=== PATIENT | male | born 1965 | race Two or more races ===

== ENCOUNTER 2020-09-07 11:45 | Emergency (ER) | payer MEDICAID, SELFPAY ==
[~2020-09-07] VITALS: Ht 167.6 cm; Wt 93.0 kg
[2020-09-07 11:45] VITALS: BP_SYST 109
[2020-09-07] MEDS ORDERED: LevALBUTEROL HCL 1.25 MG/0.5 ML *CONC.* VIAL.NEB (XOPENEX CONC.) INH ONE (12:45)
[2020-09-07 13:20] LABS: BASOPHILS # (AUTO) 0.1 K/uL (0.0-0.2); BASOPHILS % (AUTO) 0.7 % (0.0-2.0); EOSINOPHILS # (AUTO) 0.1 K/uL (0.0-0.4); EOSINOPHILS % (AUTO) 1.7 % (0.0-4.0); HEMATOCRIT 42.1 % (36-54); HEMOGLOBIN 14.4 g/dL (14.0-18.0); LYMPHOCYTES # (AUTO) 1.5 K/uL (1.0-5.5); LYMPHOCYTES % (AUTO) 20.7 % (20.5-51.5); MEAN CORPUSCULAR HEMOGLOBIN 30 pg (27-31); MEAN CORPUSCULAR HGB CONC 34 % (32-36); MEAN CORPUSCULAR VOLUME 87 fL (79.0-98.0); MONOCYTES # (AUTO) 1.1 K/uL (0.0-1.0); MONOCYTES % (AUTO) 15.7 % (1.7-9.3); NEUTROPHILS # (AUTO) 4.4 K/uL (1.8-7.7); NEUTROPHILS % (AUTO) 61.2 % (40.0-70.0); PLATELET COUNT (AUTO) 303 K/uL (130-430); RED BLOOD CELL COUNT(AUTO) 4.82 MIL/uL (4.2-6.2); RED CELL DISTRIBUTION WIDTH 13.2 % (9.0-15.0); WHITE BLOOD COUNT (AUTO) 7.3 K/uL (4.8-10.8)
[2020-09-07 13:47] LABS: CALCIUM 8.7 mg/dL (8.4-11.0); CREATININE 0.98 mg/dL (0.55-1.30); POTASSIUM 3.6 mmol/L (3.5-5.1)
[2020-09-07 13:51] LABS: PROTHROMBIN TIME 10.5 SECS (9.5-12.5)
[2020-09-07 13:53] LABS: ALBUMIN 3.4 g/dL (3.4-4.8); TOTAL BILIRUBIN 0.6 mg/dL (0.0-1.0)
[2020-09-07] MEDS ORDERED: cefTRIAXone 1 GM in LIDOCAINE 1%, 20 ML MDV 2.1 ML IM ONE (15:30)
[2020-09-07] MEDS ORDERED: AZITHROMYCIN 250 MG TABLET PO ONE (15:30)
[2020-09-07] MEDS ORDERED: AZIT500T3 PO (15:33)
[2020-09-07] MEDS ORDERED: BENZ-16 PO (15:33)
[2020-09-07 15:52] VITALS: BP_SYST 111
== END 2020-09-07 15:56 | disposition home or self-care (01) ==
LOC: SED 11:45
DX: U07.1 COVID-19 (principal); J18.9 Pneumonia, unspecified organism; I10 Essential (primary) hypertension; E78.5 Hyperlipidemia, unspecified
CPT/HCPCS: 36415; 36600; 71045; 80053; 82803; 83605; 85025; 85610; 85730; 87040; 87426; 93005; 94640; 96372; 99285; J0696; J2001; J7612; Q0144